=== PATIENT | female | born 1945 | race Caucasian/White ===

== ENCOUNTER 2016-05-10 11:53 | Inpatient (IN) ==
[2016-05-10] MEDS ORDERED: Ondansetron 4 MG/2 ML VIAL IVP STA ×2 (13:34→14:40)
[2016-05-10] MEDS ORDERED: *HR* HYDROmorphone (PF) 1 MG/ML SYRINGE IVP ONE (13:34)
[2016-05-10 13:58] LABS: Basophils % 0.4 %; Eosinophils # 0.1 K/mcL (0.0-0.6); Eosinophils % 0.6 %; Hematocrit 42.6 % (35.3-44.9); Hemoglobin 13.8 g/dL (11.5-15.4); Immature Granulocytes % 0.5 % (0-4); Immature Platelets 6.9 % (1.1-6.1); Lymphocytes # 1.4 K/mcL (0.6-4.6); Lymphocytes % 18.6 %; Mean Corpuscular HGB Conc 32.4 g/dL (31.6-35.5); Mean Corpuscular Hemoglobin 27.9 pg (28.0-33.3); Mean Corpuscular Volume 86.1 fL (83.0-100.0); Mean Platelet Volume 11.2 fL (9.4-12.4); Monocytes # 0.3 K/mcL (0.0-1.3); Monocytes % 4.2 %; Neutrophils # 5.8 K/mcL (1.6-8.9); Platelet Count 137 K/mcL (140-400); Red Blood Count 4.95 M/mcL (3.82-4.97); Red Cell Distribution Width 13.2 % (11.5-14.5); Segmented Neutrophils % 75.7 %
--- NOTE | 2016-05-10 13:59 | Emergency Department Note ---
Disposition Clinical Impression: Small bowel obstruction Disposition: Admitted As Inpatient Condition: Critical Time of Disposition: 18:40 Abdominal Pain HPI - General Chief Complaint: ED Abdominal Pain Stated Complaint: Abdominal pain Time Seen by Provider: 05/10/16 13:27 Source: patient Nursing Notes Reviewed: Yes Vital Signs Reviewed: Yes - History of Present Illness HPI Narrative: Mrs. Hankins, a 71yo female, presents from home by POV which he complained abdominal pain. History obtained from patient's daughter and as patient is moaning in bed. She has history of multiple dental procedures with known adhesions and history of multiple bowel obstructions. Daughter states patient was asymptomatic this morning and a breakfast without issue. Shortly thereafter, she had intense sharp diffuse abdominal pain with associated nausea and dry heaves. Patient is not had a bowel movement or passed flatus. Pain Scale: 10 - Related Data Home Medications Medication Instructions Recorded Confirmed Amlodipine [Norvasc] 5 mg PO BID 05/10/16 05/10/16 Aspirin Enteric Coated [Aspirin EC] 81 mg PO DAILY 05/10/16 05/10/16 Cholecalciferol (D-3) [Vitamin D] 2,000 unit PO DAILY 05/10/16 05/10/16 Levothyroxine [Synthroid] 100 mcg PO DAILY 05/10/16 05/10/16 Metoprolol [Lopressor] 50 mg PO BID 05/10/16 05/10/16 Tramadol HCl/Acetaminophen 1 each PO HS PRN 05/10/16 05/10/16 [Ultracet Tablet] Allergies Allergy/AdvReac Type Severity Reaction Status Date / Time No Known Allergies Allergy Verified 11/25/15 00:01 All systems ED: reviewed and negative except as stated. Constitutional: Denies: fever, chills Cardiovascular: Denies: chest pain, palpitations Respiratory: Denies: cough, dyspnea, wheezes Gastrointestinal: Reports: abdominal pain, nausea, vomiting. Denies: diarrhea, constipation, hematemesis, melena, hematochezia Genitourinary: Denies: urgency, dysuria Musculoskeletal: Denies: back pain Integumentary: Denies: rash Abdominal Pain PMH - Past Medical History Medical history: Reports: hypertension Female Surgical History: Reports: appendectomy, cholecystectomy, other Psychiatric history: Reports: no psych history - Social History Smoking status: Never smoker Alcohol use: Reports: none Drug use: Reports: none Physical Exam General: Patient is alert, oriented, and in acute painful distress she is moaning in pain with her eyes clip shot holding her abdomen. HEENT: No facial asymmetry. Head is normocephalic and atraumatic. Trachea midline. Cardiovascular: Heart regular rate and rhythm without clicks, rubs, gallops, or murmurs. No JVD. PMI nondisplaced. Respiratory: Symmetric chest rise with good respiratory effort. Bilateral breath sounds are clear without wheezing, crackles, or rhonchi. Abdomen: Bowel sounds present normoactive x-4 quadrants. Abdomen is soft, nondistended, no guarding. Diffusely tender in all quadrants. Unable to assess organomegaly due to patient's pain. Psych: Patient's affect is appropriate for situation. - General Limitations: no limitations General appearance: alert, in no apparent distress Course Course Narrative: We will perform abdominal workup including CT abdomen and pelvis with IV contrast. I have chosen to not wait for by mouth contrast to hasten the potential diagnosis of bowel obstruction. Patient's lab work is unremarkable. CT scan and formally read by myself or my attending as a small bowel obstruction. Radiology impression agrees. Abdomen/Pelvis CT 05/10/16 13:35 IMPRESSION: Proximal small bowel obstruction with transition occurring at the level of a jejunal anastomosis related to gastric bypass D/ / Steve Arias MD / Steve Arias MD Interpreting Provider: Steve Arias MD I spoke the patient and her family at bedside. When asked if they would prefer staying here versus going to [facility] where she had her previous surgeries, they prefer to stay here. When asked if they prefer her previous surgeon, Dr. Fierro, or the on-call surgeon they state they prefer Dr. Fierro. At this time, we will provide IV fluids and place NG tube. Patient expresses a need to urinate however is highly uncomfortable with the slightest movement; with her permission, will place Rosas catheter. NG tube placed by nursing. KUB as interpreted by myself and my attending confirm proper placement. Radiology read pending. Will clear nursing NG tube to wall vacuum. 17:[address] fierro after he was done with the surgery. He agrees to see the patient; accepted to his service. 19:00 Patient still in the ER however she is accepted with bed assignment. Patient signed out to night team for continued monitoring and management within the ER. Vital Signs Temperature 97.2 F L 05/10/16 12:15 Pulse Rate 61 05/10/16 12:15 Respiratory Rate 16 05/10/16 12:15 Blood Pressure 96/41 05/10/16 12:15 O2 Sat by Pulse Oximetry 100 05/10/16 12:15 Temperature 0 F L 05/10/16 18:56 Pulse Rate 53 05/10/16 14:38 Respiratory Rate 18 05/10/16 18:56 Blood Pressure 163/79 05/10/16 18:56 O2 Sat by Pulse Oximetry 94 L 05/10/16 14:51 Oxygen Delivery Oxygen Delivery Nasal Cannula Abdominal Pain - Lab Data Result diagrams: 05/10/16 13:35 05/10/16 13:35 Lab Results 05/10/16 05/10/16 Range/Units 13:35 13:35 WBC 7.7 (4.3-11.1) K/mcL RBC 4.95 (3.82-4.97) M/mcL Hgb 13.8 (11.5-15.4) g/dL Hct 42.6 (35.3-44.9) % MCV 86.1 (83.0-100.0) fL MCH 27.9 L (28.0-33.3) pg MCHC 32.4 (31.6-35.5) g/dL RDW 13.2 (11.5-14.5) % Plt Count 137 L (140-400) K/mcL MPV 11.2 (9.4-12.4) fL Immature Gran % 0.5 (0-4) % Seg Neutrophils % 75.7 % Lymphocytes % 18.6 % Monocytes % 4.2 % Eosinophils % 0.6 % Basophils % 0.4 % Neutrophils # 5.8 (1.6-8.9) K/mcL Lymphocytes # 1.4 (0.6-4.6) K/mcL Monocytes # 0.3 (0.0-1.3) K/mcL Eosinophils # 0.1 (0.0-0.6) K/mcL Basophils # 0.0 (0.0-0.2) K/mcL Immature Plt Fraction 6.9 H (1.1-6.1) % Sodium 137 (136-145) mEq/L Potassium 3.7 (3.5-4.5) mEq/L Chloride 101 (98-109) mEq/L Carbon Dioxide 21 (19-29) mEq/L BUN 14 (7-20) mg/dL Creatinine 0.89 (0.57-1.11) mg/dL Est GFR ( Amer) > 60 (> 60) Est GFR (Non-Af Amer) > 60 (> 60) BUN/Creatinine Ratio 16 (6-26) Glucose 142 H (70-99) mg/dL Calculated Osmolality 287 (280-300) Calcium 10.0 (8.6-10.8) mg/dL Total Bilirubin 0.6 (0.2-1.2) mg/dL Direct Bilirubin 0.2 (0.0-0.5) mg/dL Indirect Bilirubin 0.4 (0.0-1.2) mg/dL AST 36 H (5-34) Units/L ALT 27 (0-55) Units/L Alkaline Phosphatase 111 (38-126) Units/L Serum Total Protein 7.7 (6.0-8.3) g/dL Albumin 4.3 (3.5-5.0) g/dL Globulin 3.4 (2.4-3.5) g/dL Albumin/Globulin Ratio 1.3 (1.1-2.2) Amylase 80 (25-125) Units/L Lipase 68 (8-78) Units/L S.B.A.R. - S.B.A.RSevero Situation: Demographics Background: Presenting Complaint, Relevant PMH, Meds, & Allergies Assessment: Vital Signs, Course and respsone to treatment, Exam Concerns, Patient/Family Expectation, Pertinant Lab Results Recommendation: Barrier(s) to disposition S.B.A.R. Report Given to: Dr. Barros SSeveroB.ASandrine Repor Time: 19:07 Attestation Statement - Attestation Attestation: I examined this patient and my medical decision-making was reviewed with the INVENTORY CHECKER/PA/Advanced Practice Nurse/Resident Physician. I agree with the documented findings, disposition and treatment plan as described except to the extent set forth below. Patient to the emergency department for the chief complaint of abdominal pain. Onset this morning. Feels like prior bowel obstructions. On examination the patient is crying. Diffuse pain with palpation over the abdomen. She does have bowel sounds. Plan. Labs pain control and CT scan. Patient was small bowel obstruction on CT. She is feeling better after NG placement. Still awaiting callback from surgery.
[2016-05-10 14:19] LABS: Alanine Aminotransferase 27 Units/L (0-55); Albumin 4.3 g/dL (3.5-5.0); Albumin/Globulin Ratio 1.3 (1.1-2.2); Alkaline Phosphatase 111 Units/L (38-126); Amylase 80 Units/L (25-125); Aspartate Amino Transferase 36 Units/L (5-34); BUN/Creatinine Ratio 16 (6-26); Bilirubin,Direct 0.2 mg/dL (0.0-0.5); Bilirubin,Indirect 0.4 mg/dL (0.0-1.2); Bilirubin,Total 0.6 mg/dL (0.2-1.2); Blood Urea Nitrogen 14 mg/dL (7-20); Carbon Dioxide 21 mEq/L (19-29); Chloride 101 mEq/L (98-109); Globulin 3.4 g/dL (2.4-3.5); Glucose 142 mg/dL (70-99); Lipase 68 Units/L (8-78); Osmolality,Calculated 287 (280-300); Potassium 3.7 mEq/L (3.5-4.5); Sodium 137 mEq/L (136-145); Total Protein 7.7 g/dL (6.0-8.3); eGFR For African Americans > 60 (> 60); eGFR For Non-African Americans > 60 (> 60)
[2016-05-10] MEDS ORDERED: *HR* Morphine 2 MG/ML SYRINGE IVP ONE (14:19)
[2016-05-10] MEDS ORDERED: *HR* Promethazine 25 MG/ML VIAL IVP ONE ×2 (14:57→17:15)
[2016-05-10] MEDS ORDERED: 0.9 % Sodium Chloride 1,000 ML IVC ONE ×2 (15:50→17:47)
--- NOTE | 2016-05-10 20:00 | General Surg History&Physical ---
Date of Encounter: 05/10/16 Time of Encounter: 18:20 History of Present Illness Chief complaint: Abdominal pain; small bowel obstruction HPI: Ms. Hankins is a 71 year old female referred to [facility], per patient and family request, for further evaluation of new onset abdominal pain if multiple episodes of "dry heaves". The patient has a significant surgical history of gastric bypass in 2000. The patient apparently presented approximately a year and a half ago, with similar symptoms but they resolved without surgical intervention. Patient's blood work is unremarkable, white count 7.7, hemoglobin 13.8, hematocrit 42.6. Lites, BUN, creatinine within normal limits. CT of the abdomen and pelvis was personally reviewed with [facility]. The findings include: Scarring left lower lobe; small left renal cyst and evidence of previous cholecystectomy as well as gastric bypass. There is distention of the remnant stomach, duodenum and proximal jejunum. Transition to normal caliber small bowel is noted in the left lower quadrant at the site of a jejuno-jejunum anastomosis. Fecalization of the small bowel contents within the dilated loops is described and may represent accumulation of indigestible vegetable matter causing the obstruction. The patient's symptoms and radiologic findings prompted a surgical referral. Past medical history is notable for hypertension, hypothyroidism Surgical history: Liam-en-Y gastric bypass, 2000; cholecystectomy 2001; left total knee approximately one month ago (Dr Saavedra) Allergies: No known drug allergies Medications: Amlodipine 5 mg by mouth twice a day Aspirin 81 mg by mouth daily Metoprolol 2050 mg by mouth twice a day (family indicates she is taking 1 daily) Levothyroxine 100 g by mouth daily Per hospital records - also cholecalciferol 2000 units by mouth daily Tramadol/acetaminophen 1 by mouth daily at bedtime when necessary Social history: Patient is , lives at home with her ; G2, P2; patient has never smoked; admits to occasional out colic beverage. She denies any illicit drug use. Family history: Noncontributory Physical examination: Elderly female lying quietly in her hospital bed; she has been medicated for pain and antiemetics with resultant sedation. Rosas catheter and nasogastric tube in place per ED personnel. The patient is afebrile, 98.8; pulse 68, respirations 16, blood pressure 143/ 79. SPO2 on 2 L/m nasal cannula 93% Skin: Warm, waist, no obvious jaundice Lungs: Clear to auscultation, no obvious abdominal pain on inspiration. Cardiac: Regular rate, no appreciable murmurs Abdomen: Well-healed upper midline surgical scar without fascial defects; abdomen soft, nontender. High-pitched, tinkling bowel sounds noted. No obvious intra-abdominal masses. No rebound. Extremities: Left knee swelling with healthy, healing midline scar surgical scar consistent with recent TKR Right lower extremity without obvious clubbing, cyanosis, or edema Impression:71 yo with new onset cramping abdominal pain, dry heaves and radiologic evidence SBO. Most likely at a prior jejuno-jejunal anastomosis related to a Liam-Y gastric bypass completed 2000. Plan: Nothing by mouth, continue NG decompression; IV hydration. If symptoms persist - patient may require exploratory celiotomy with revision / resection jejuno-jejunal anastomosis. This was discussed in detail with the patient, her and daughter who were present at bedside. Past Med Surg Social Fam HX - Past Medical History Medical history: hypertension Psychiatric history: no psych history - Social History Smoking Status: Never smoker Smokeless Tobacco Status: No Alcohol use: none Drug use: none Medications and Allergies Amlodipine [Norvasc] 5 mg PO BID 05/10/16 [History] Aspirin Enteric Coated [Aspirin EC] 81 mg PO DAILY 05/10/16 [History] Cholecalciferol (D-3) [Vitamin D] 2,000 unit PO DAILY 05/10/16 [History] Levothyroxine [Synthroid] 100 mcg PO DAILY 05/10/16 [History] Metoprolol [Lopressor] 50 mg PO BID 05/10/16 [History] Tramadol HCl/Acetaminophen [Ultracet Tablet] 1 each PO HS PRN 05/10/16 [History] Allergies No Known Allergies Allergy (Verified 11/25/15 00:01) Review of Systems All systems PM: A 10-system review of systems was performed and is negative for pertinent findings except as documented above in the HPI. General Surgery Exam Initial Vital Signs Temp Pulse Resp BP Pulse Ox 97.2 F L 61 16 96/41 100 05/10/16 12:15 05/10/16 12:15 05/10/16 12:15 05/10/16 12:15 05/10/16 12:15 Results - Labs 05/10/16 13:35 05/10/16 13:35 Abnormal lab results MCH 27.9 pg (28.0-33.3) L 05/10/16 13:35 Plt Count 137 K/mcL (140-400) L 05/10/16 13:35 Immature Plt Fraction 6.9 % (1.1-6.1) H 05/10/16 13:35 Glucose 142 mg/dL (70-99) H 05/10/16 13:35 AST 36 Units/L (5-34) H 05/10/16 13:35 All other labs normal.
[2016-05-10] MEDS ORDERED: *HR* HYDROmorphone (PF) 1 MG/ML SYRINGE IVP PRN (20:06)
[2016-05-10] MEDS ORDERED: *HR* Promethazine 25 MG/ML VIAL IVP PRN (20:06)
[2016-05-10] MEDS: Ringers Solution, Lactated 1,000 ML IVC SCH (22:23)
[2016-05-10] MEDS: *HR* Metoprolol 5 MG/5 ML VIAL IVP SCH (23:57)
[2016-05-11] MEDS: *HR* Metoprolol 5 MG/5 ML VIAL IVP SCH ×2 (06:09→13:01)
[2016-05-11] MEDS: Ringers Solution, Lactated 1,000 ML IVC SCH (06:09)
[2016-05-11] MEDS: *HR* Heparin 5,000 UNIT/ML VIAL SQ SCH ×2 (07:14→20:13)
[2016-05-11 07:26] LABS: Bilirubin,Urine Negative (Negative); Blood,Urine Negative (Negative); Clarity,Urine Clear (Clear); Color,Urine Yellow (Yellow); Glucose,Urine (UA) Normal (Normal); Ketones,Urine Negative (Negative); Leukocyte Esterase,Urine Negative (Negative); Nitrite,Urine Negative (Negative); Protein,Urine Negative (Neg-Trace); Specific Gravity,Urine 1.013 (1.010-1.025); Urobilinogen,Urine Normal (Normal)
[2016-05-11] MEDS ORDERED: Acetaminophen 325 MG TABLET PO PRN (13:10)
[2016-05-11] MEDS ORDERED: D5% in 0.45% NACL 1,000 ML IVC SCH (13:15)
--- NOTE | 2016-05-11 13:18 | General Surgery Progress Note ---
Date of Encounter: 05/11/16 Time of Encounter: 12:50 Subjective Patient reports: feels better, flatus Narrative: Hospital day 1: patient feeling much improved. No further complaints cramping abdominal pain. No N/V or dry heaves. Passing flatus The patient is afebrile, 98.6; pulse 62, respirations 14, blood pressure 154/ 79 NG output - scant Lungs: Clear Abdomen: Soft, nontender with active bowel sounds Acute abdominal series - personally reviewed with [facility]. Findings include: bibasilar atelectasis, scattered air-filled loops of small bowel which appear less pronounced compaired to the CT last evening; moderate stool within the colon; mild degenerative changes of the hips and spine. Impression: Significant improvement with solution of cramping abdominal pain. Patient no longer in distress. Passing flatus. Small bowel obstruction appears to be resolved. Plan: Remove NG and Rosas Clear liquid diet Cancel surgical plans for the time being. Patient and family aware and agree with this treatment plan. Objective Vital Signs - Last 8 Hours Temp Pulse Resp BP Pulse Ox 05/11/16 11:00 98.6 F 62 14 154/79 95 05/11/16 08:01 98.6 F 62 16 126/75 96 Intake and Output 05/10/16 05/11/16 05/11/16 23:59 07:59 15:59 Intake Total 1000 / 1000 0 / 0 Output Total 400 / 400 650 / 650 Balance 600 / 600 -650 / -650 Intake: IV Fluids 1000 / 1000 Lactated Ringers 1,000 ML 1000 / 1000 @ 125 mls/hr IVC .Q8H [facility] Rx#:[id number] Oral 0 / 0 0 / 0 Output: Urine 300 / 300 Catheter 400 / 400 350 / 350 Gastric Drainage 0 / 0 Other: Weight 90.718 kg Blood Glucose* 89 106 Patient Weight 05/11/16 23:59 Weight 90.718 kg - Labs 05/10/16 13:35 05/10/16 13:35 Consult Discharge Plan - Plan Referrals: Bhavik Fierro MD [Non-Partnered Physician] -
[2016-05-11] MEDS: amLODIPine 5 MG TABLET PO SCH (18:48)
[2016-05-12 05:15] LABS: Basophils % 0.5 %; Eosinophils # 0.2 K/mcL (0.0-0.6); Hemoglobin 11.8 g/dL (11.5-15.4); Immature Granulocytes % 0.3 % (0-4); Lymphocytes # 1.5 K/mcL (0.6-4.6); Lymphocytes % 40.5 %; Mean Corpuscular HGB Conc 31.1 g/dL (31.6-35.5); Mean Corpuscular Hemoglobin 27.5 pg (28.0-33.3); Mean Corpuscular Volume 88.6 fL (83.0-100.0); Mean Platelet Volume 10.9 fL (9.4-12.4); Monocytes # 0.4 K/mcL (0.0-1.3); Monocytes % 9.4 %; Neutrophils # 1.7 K/mcL (1.6-8.9); Platelet Count 112 K/mcL (140-400); Red Blood Count 4.29 M/mcL (3.82-4.97); Red Cell Distribution Width 13.3 % (11.5-14.5); Segmented Neutrophils % 45.3 %
[2016-05-12 05:33] LABS: BUN/Creatinine Ratio 11 (6-26); Blood Urea Nitrogen 7 mg/dL (7-20); Calcium 8.9 mg/dL (8.6-10.8); Carbon Dioxide 27 mEq/L (19-29); Chloride 107 mEq/L (98-109); Glucose 91 mg/dL (70-99); Osmolality,Calculated 288 (280-300); Potassium 3.3 mEq/L (3.5-4.5); Sodium 140 mEq/L (136-145); eGFR For African Americans > 60 (> 60); eGFR For Non-African Americans > 60 (> 60)
[2016-05-12] MEDS: *HR* Heparin 5,000 UNIT/ML VIAL SQ SCH (06:07)
[2016-05-12 07:52] VITALS: BP 152/73
[2016-05-12] MEDS: amLODIPine 5 MG TABLET PO SCH (09:59)
--- NOTE | 2016-05-12 12:20 | General Surgery Progress Note ---
Date of Encounter: 05/12/16 Time of Encounter: 12:00 Subjective Patient reports: no new complaints, feels better Narrative: General Surgery Progress Note / Discharge Summary Hospital day #2 - patient feeling well, voicing no complaints. Abdominal pain for which the patient was admitted, resolved The patient is afebrile, 98.2; pulse 60, respirations 16, blood pressure 152/ 73. SPO2 on room air 96% Lungs: Clear, no abdominal pain with deep inspiration Cardiac: Regular rate, no obvious murmurs Abdomen: Soft, nontender. Active bowel sounds. Patient continues to move her bowels. Resolution of previous signs and symptoms of a small bowel obstruction Laboratories: White count 3.7; hemoglobin 11.8 with hematocrit 38.8 - H&H diminished due to IV fluids administered in ED and during hospitalization Potassium 3.3; other electrolytes BUN creatinine within normal limits Impression: likely transient mechanical bowel obstruction due to accumulated fibrous, undigestible material at the jejuno-jejunal anastomosis created during the Liam-Y gastric bypass. This obstruction spontaneously resolved with fluids, bowel rest and NG decompression Hypertension - stable/controlled Hypothyroidism Hypokalemia - consume foods rich in potassium - bananas, raisins Plan: discharge home follow up with me, PRN regular diet increase daily fluid intake along with stool softeners of choice BID resume home meds Objective Vital Signs - Last 8 Hours Temp Pulse Resp BP Pulse Ox 05/12/16 07:46 98.2 F 60 16 152/73 96 Intake and Output 05/11/16 05/12/16 05/12/16 23:59 07:59 15:59 Intake Total 1400 / 1400 240 / 240 460 / 460 Output Total 0 / 0 900 / 900 Balance 1400 / 1400 -660 / -660 460 / 460 Intake: Oral 1400 / 1400 240 / 240 460 / 460 Output: Urine 0 / 0 900 / 900 Other: Meal Dinner Percent of Meal Consumed 85% Stool Size Moderate Stool Consistency liquid Stool Color Brown # Voids 1 # Bowel Movements 1 Weight 95.396 kg Patient Weight 05/12/16 23:59 Weight 95.396 kg - Labs 05/12/16 04:58 05/12/16 04:58 Diabetes panel 05/12/16 Range/Units 04:58 Sodium 140 (136-145) mEq/L Potassium 3.3 L (3.5-4.5) mEq/L Chloride 107 (98-109) mEq/L Carbon Dioxide 27 (19-29) mEq/L BUN 7 (7-20) mg/dL Creatinine 0.66 (0.57-1.11) mg/dL Glucose 91 (70-99) mg/dL Calcium 8.9 (8.6-10.8) mg/dL Calcium panel 05/12/16 Range/Units 04:58 Calcium 8.9 (8.6-10.8) mg/dL Pituitary panel 05/12/16 Range/Units 04:58 Sodium 140 (136-145) mEq/L Potassium 3.3 L (3.5-4.5) mEq/L Chloride 107 (98-109) mEq/L Carbon Dioxide 27 (19-29) mEq/L BUN 7 (7-20) mg/dL Creatinine 0.66 (0.57-1.11) mg/dL Glucose 91 (70-99) mg/dL Calcium 8.9 (8.6-10.8) mg/dL Adrenal panel 05/12/16 Range/Units 04:58 Sodium 140 (136-145) mEq/L Potassium 3.3 L (3.5-4.5) mEq/L Chloride 107 (98-109) mEq/L Carbon Dioxide 27 (19-29) mEq/L BUN 7 (7-20) mg/dL Creatinine 0.66 (0.57-1.11) mg/dL Glucose 91 (70-99) mg/dL Calcium 8.9 (8.6-10.8) mg/dL Consult Discharge Plan - Plan Referrals: Mingo Dunham DO [Primary Care Provider] - Bhavik Fierro MD [Non-Partnered Physician] -
--- NOTE | 2016-05-12 12:22 | Discharge Summary ---
Outpatient Proc Discharge Plan - Plan Additional Instructions: Regular diet Stool softeners of choice twice daily Laxative of choice as needed for constipation (suggest MiraLAX) Increase dietary intake of fluids; nutrition/dietary to provide suggested products Activity as tolerated, may resume rehabilitation for continued TKR recovery Follow-up with me as needed Resume home meds Home Medications: Amlodipine [Norvasc] 5 mg PO BID 05/10/16 [History] Aspirin Enteric Coated [Aspirin EC] 81 mg PO DAILY 05/10/16 [History] Cholecalciferol (D-3) [Vitamin D] 2,000 unit PO DAILY 05/10/16 [History] Levothyroxine [Synthroid] 100 mcg PO DAILY 05/10/16 [History] Metoprolol [Lopressor] 50 mg PO BID 05/10/16 [History] Tramadol HCl/Acetaminophen [Ultracet Tablet] 1 each PO HS PRN 05/10/16 [History] Acetaminophen [Tylenol] 650 mg PO Q6HR PRN #0 tablet 05/12/16 [Rx]
== END 2016-05-12 13:30 | disposition home or self-care (01) | DRG 390 ==
LOC: EMEROO 11:53 → 3ANU 11:53
PROVIDERS: ADMIT Surgery; ATTEND Surgery

== ENCOUNTER 2016-09-13 19:17 | Inpatient (IN) ==
[2016-09-13] MEDS ORDERED: 0.9 % Sodium Chloride 1,000 ML IVC ONE (20:17)
[2016-09-13] MEDS ORDERED: Ondansetron 4 MG/2 ML VIAL IVP ONE (20:17)
[2016-09-13] MEDS ORDERED: *HR* Morphine 2 MG/ML SYRINGE IVP ONE (20:17)
--- NOTE | 2016-09-13 20:37 | Emergency Department Note ---
Disposition Clinical Impression: Small bowel obstruction Disposition: Admitted As Inpatient Condition: Fair Time of Disposition: 22:21 Abdominal Pain HPI - General Chief Complaint: ED Abdominal Pain Stated Complaint: abd pain Time Seen by Provider: 09/13/16 19:22 Source: patient, family Nursing Notes Reviewed: Yes Vital Signs Reviewed: Yes - History of Present Illness HPI Narrative: Mrs. Hankins, 71-year-old female, presents from home via POV with and daughter bedside for evaluation of acute onset abdominal pain. Onset 1.5 hours prior to arrival (appx 17:45). Described as upper abdomen, intensely painful. Patient has difficulty characterizing her pain. It does radiate to her back. She states this feels identical to previous small bowel obstructions. Most recent SBO was in April and she is had a total of 5 previous confirmed small bowel structures before today's symptoms. She is associated nausea (without vomiting), anorexia. She did have a bowel movement earlier today (no melena, no hematochezia) but has not passed flatus since onset of symptoms. Patient did have resection after first SBO some years ago however subsequent SBO 's have spontaneously resolved. Followed by Dr. Fierro. She is currently not on any antiplatelets or anticoagulants. PSH: Appendectomy, cholecystectomy, gastric bypass, remote small bowel resection after first SBO. Gastric bypass performed [address] Segovia at [facility]. Pain Scale: 10 - Related Data Home Medications Medication Instructions Recorded Confirmed Levothyroxine [Synthroid] 100 mcg PO DAILY 05/10/16 09/13/16 Metoprolol [Lopressor] 50 mg PO BID 05/10/16 09/13/16 amLODIPine [Norvasc] 5 mg PO BID 05/10/16 05/10/16 predniSONE [PredniSONE] 10 mg PO TAPER 09/13/16 09/13/16 Previous Rx's Medication Instructions Recorded Acetaminophen [Tylenol] 650 mg PO Q6HR PRN #0 tablet 05/12/16 Allergies Allergy/AdvReac Type Severity Reaction Status Date / Time No Known Allergies Allergy Verified 11/25/15 00:01 All systems ED: reviewed and negative except as stated. Abdominal Pain PMH - Past Medical History Medical history: Reports: hypertension, thyroid disease, other Female Surgical History: Reports: appendectomy, cholecystectomy, other Psychiatric history: Reports: no psych history - Social History Smoking status: Never smoker Alcohol use: Reports: none Drug use: Reports: none Physical Exam Vital Signs Reviewed General: Patient is alert, oriented, and in acute distress-she is in obvious pain and holding the emesis bag while grimacing. HEENT: No facial asymmetry. Head is normocephalic and atraumatic. PERRLA. Oral mucosa tacky. Trachea midline. Cardiovascular: Heart regular rate and rhythm without clicks, rubs, gallops, or murmurs. No JVD. PMI nondisplaced. Trace pedal edema. Respiratory: Symmetric chest rise with good respiratory effort. Bilateral breath sounds are clear without wheezing, crackles, or rhonchi. Abdomen: Bowel sounds present normoactive x-4 quadrants. Abdomen is soft, nondistended, and without guarding. Mild diffuse tenderness most exquisite in the upper abdomen. Psych: Patient's affect is appropriate for situation. - General Limitations: no limitations General appearance: alert, in no apparent distress Course Course Narrative: The concerns for small bowel stricture. Will provide enzymatic, pain control, fluid resuscitation, laboratory workup, CT abdomen and pelvis with IV contrast. If obstruction present, will place NG tube and page Dr. Fierro. Abdomen/Pelvis CT 09/13/16 20:20 IMPRESSION: 1. Status post gastric bypass. Redemonstration of obstruction at the level of the jejunal-jejunal anastomosis involving the gastric remnant and proximal small bowel. Fecalization of small bowel contents. The small bowel distal to the gastrojejunostomy is unremarkable. 2. Otherwise no acute findings within the abdomen or pelvis. D/ / 09/13/2016 21:32:37 Guille Arnold MD / [facility] Interpreting Provider: Guille Arnold MD Prior to CT, patient had a large belch after which she felt substantially better. It appears as she self-decompressed her stomach. No significant gastric distention on CT. We will hold off on NG tube at this time until patient becomes symptomatic with gastric station wanting discomfort when NG tube. Spoke with Dr. fierro who agrees with medical management at this time. Spoke with the admitting hospitalist reduced to except the patient for continued evaluation and management. Vital Signs Temperature 97.6 F 09/13/16 19:33 Pulse Rate 68 09/13/16 19:33 Respiratory Rate 18 09/13/16 19:33 Blood Pressure 117/78 09/13/16 19:33 O2 Sat by Pulse Oximetry 97 09/13/16 19:33 Temperature 98.3 F 09/14/16 00:01 Pulse Rate 72 09/14/16 00:01 Respiratory Rate 13 09/14/16 00:01 Blood Pressure 166/77 09/14/16 00:01 O2 Sat by Pulse Oximetry 95 09/14/16 00:01 Oxygen Delivery Oxygen Delivery Room Air Abdominal Pain - Lab Data Result diagrams: 09/13/16 20:30 09/13/16 20:30 Lab Results 09/13/16 09/13/16 09/13/16 Range/Units 20:30 20:30 20:38 WBC 10.5 (4.3-11.1) K/mcL RBC 5.16 H (3.82-4.97) M/mcL Hgb 13.8 (11.5-15.4) g/dL Hct 43.7 (35.3-44.9) % MCV 84.7 (83.0-100.0) fL MCH 26.7 L (28.0-33.3) pg MCHC 31.6 (31.6-35.5) g/dL RDW 14.6 H (11.5-14.5) % Plt Count 153 (140-400) K/mcL MPV 11.5 (9.4-12.4) fL Immature Gran % 0.4 (0-4) % Seg Neutrophils % 77.8 % Lymphocytes % 15.2 % Monocytes % 5.3 % Eosinophils % 1.0 % Basophils % 0.3 % Neutrophils # 8.2 (1.6-8.9) K/mcL Lymphocytes # 1.6 (0.6-4.6) K/mcL Monocytes # 0.6 (0.0-1.3) K/mcL Eosinophils # 0.1 (0.0-0.6) K/mcL Basophils # 0.0 (0.0-0.2) K/mcL PT 10.4 (9.4-12.1) Seconds INR 1.0 APTT 25.1 L (26.0-36.0) Seconds Sodium 136 (136-145) mEq/L Potassium 4.5 (3.5-4.5) mEq/L Chloride 100 (98-109) mEq/L Carbon Dioxide 26 (19-29) mEq/L BUN 26 H (7-20) mg/dL Creatinine 0.91 (0.57-1.11) mg/dL Est GFR ( Amer) > 60 (> 60) Est GFR (Non-Af Amer) > 60 (> 60) BUN/Creatinine Ratio 29 H (6-26) Glucose 137 H (70-99) mg/dL Calculated Osmolality 289 (280-300) Lactic Acid (0.5-2.2) mmol/L Calcium 10.1 (8.6-10.8) mg/dL Total Bilirubin 0.6 (0.2-1.2) mg/dL Direct Bilirubin 0.2 (0.0-0.5) mg/dL Indirect Bilirubin 0.4 (0.0-1.2) mg/dL AST 28 (5-34) Units/L ALT 24 (0-55) Units/L Alkaline Phosphatase 105 (38-126) Units/L Serum Total Protein 8.0 (6.0-8.3) g/dL Albumin 4.3 (3.5-5.0) g/dL Globulin 3.7 H (2.4-3.5) g/dL Albumin/Globulin Ratio 1.2 (1.1-2.2) Lipase 83 H (8-78) Units/L Urine Color (Yellow) Urine Clarity (Clear) Urine pH (5.0-8.0) pH Units Ur Specific [place] (1.010-1.025) Urine Protein (Neg-Trace) mg/dL Urine Glucose (UA) (Normal) mg/dL Urine Ketones (Negative) mg/dL Urine Blood (Negative) Urine Nitrite (Negative) Urine Bilirubin (Negative) Urine Urobilinogen (Normal) mg/dL Ur Leukocyte Esterase (Negative) Urine Microscopic RBC (0-3) per hpf Urine Microscopic WBC (0-3) per hpf Ur Squamous Epith Cells (None-Few) per lpf Urine Bacteria (None-Few) per hpf Hyaline Casts (None-Few) per lpf Ur Culture Indicated? (NO) 09/13/16 09/13/16 Range/Units 20:45 21:27 WBC (4.3-11.1) K/mcL RBC (3.82-4.97) M/mcL Hgb (11.5-15.4) g/dL Hct (35.3-44.9) % MCV (83.0-100.0) fL MCH (28.0-33.3) pg MCHC (31.6-35.5) g/dL RDW (11.5-14.5) % Plt Count (140-400) K/mcL MPV (9.4-12.4) fL Immature Gran % (0-4) % Seg Neutrophils % % Lymphocytes % % Monocytes % % Eosinophils % % Basophils % % Neutrophils # (1.6-8.9) K/mcL Lymphocytes # (0.6-4.6) K/mcL Monocytes # (0.0-1.3) K/mcL Eosinophils # (0.0-0.6) K/mcL Basophils # (0.0-0.2) K/mcL PT (9.4-12.1) Seconds INR APTT (26.0-36.0) Seconds Sodium (136-145) mEq/L Potassium (3.5-4.5) mEq/L Chloride (98-109) mEq/L Carbon Dioxide (19-29) mEq/L BUN (7-20) mg/dL Creatinine (0.57-1.11) mg/dL Est GFR ( Amer) (> 60) Est GFR (Non-Af Amer) (> 60) BUN/Creatinine Ratio (6-26) Glucose (70-99) mg/dL Calculated Osmolality (280-300) Lactic Acid 1.8 (0.5-2.2) mmol/L Calcium (8.6-10.8) mg/dL Total Bilirubin (0.2-1.2) mg/dL Direct Bilirubin (0.0-0.5) mg/dL Indirect Bilirubin (0.0-1.2) mg/dL AST (5-34) Units/L ALT (0-55) Units/L Alkaline Phosphatase (38-126) Units/L Serum Total Protein (6.0-8.3) g/dL Albumin (3.5-5.0) g/dL Globulin (2.4-3.5) g/dL Albumin/Globulin Ratio (1.1-2.2) Lipase (8-78) Units/L Urine Color Yellow (Yellow) Urine Clarity Cloudy A (Clear) Urine pH 6.5 (5.0-8.0) pH Units Ur Specific [place] 1.029 H (1.010-1.025) Urine Protein Negative (Neg-Trace) mg/dL Urine Glucose (UA) Normal (Normal) mg/dL Urine Ketones Negative (Negative) mg/dL Urine Blood Negative (Negative) Urine Nitrite Positive A (Negative) Urine Bilirubin Negative (Negative) Urine Urobilinogen Normal (Normal) mg/dL Ur Leukocyte Esterase Moderate H (Negative) Urine Microscopic RBC 0-3 (0-3) per hpf Urine Microscopic WBC 3-5 H (0-3) per hpf Ur Squamous Epith Cells Many H (None-Few) per lpf Urine Bacteria Many H (None-Few) per hpf Hyaline Casts None Seen (None-Few) per lpf Ur Culture Indicated? YES A (NO) Attestation Statement - Attestation Attestation: I, Sanjay Hood, examined this patient and my medical decision-making was reviewed with the SENIOR SYSTEMS ANALYST/PA/Advanced Practice Nurse/Resident Physician. I agree with the documented findings, disposition and treatment plan as described except to the extent set forth below. 71-year-old female presents with concerns of abdominal pain. Patient states that this feels similar to her previous small bowel obstruction. She was previously seen by Dr. fierro and came close to having surgery of the abdomen to release her obstruction however she spontaneously improved. Patient has a history of gastric bypass in the distant past. Symptoms started about 1.5 hours prior to arrival. She is belching and feels nauseated. Has not had a bowel movement today. Denies recent trauma or other injury. Denies chest pain or shortness of breath or palpitations. CT of the abdomen reveals small bowel obstruction. Dr. fierro was contacted by the resident who recommended admission to the hospital to the hospitalist for further care and evaluation and he will see her in the hospital.
[2016-09-13 20:40] LABS: Basophils % 0.3 %; Eosinophils # 0.1 K/mcL (0.0-0.6); Hematocrit 43.7 % (35.3-44.9); Hemoglobin 13.8 g/dL (11.5-15.4); Immature Granulocytes % 0.4 % (0-4); Lymphocytes # 1.6 K/mcL (0.6-4.6); Lymphocytes % 15.2 %; Mean Corpuscular HGB Conc 31.6 g/dL (31.6-35.5); Mean Corpuscular Hemoglobin 26.7 pg (28.0-33.3); Mean Corpuscular Volume 84.7 fL (83.0-100.0); Mean Platelet Volume 11.5 fL (9.4-12.4); Monocytes # 0.6 K/mcL (0.0-1.3); Monocytes % 5.3 %; Neutrophils # 8.2 K/mcL (1.6-8.9); Platelet Count 153 K/mcL (140-400); Red Blood Count 5.16 M/mcL (3.82-4.97); Red Cell Distribution Width 14.6 % (11.5-14.5); Segmented Neutrophils % 77.8 %
[2016-09-13 20:56] LABS: Alanine Aminotransferase 24 Units/L (0-55); Albumin 4.3 g/dL (3.5-5.0); Albumin/Globulin Ratio 1.2 (1.1-2.2); Alkaline Phosphatase 105 Units/L (38-126); Aspartate Amino Transferase 28 Units/L (5-34); BUN/Creatinine Ratio 29 (6-26); Bilirubin,Direct 0.2 mg/dL (0.0-0.5); Bilirubin,Indirect 0.4 mg/dL (0.0-1.2); Bilirubin,Total 0.6 mg/dL (0.2-1.2); Blood Urea Nitrogen 26 mg/dL (7-20); Calcium 10.1 mg/dL (8.6-10.8); Carbon Dioxide 26 mEq/L (19-29); Chloride 100 mEq/L (98-109); Globulin 3.7 g/dL (2.4-3.5); Glucose 137 mg/dL (70-99); Lipase 83 Units/L (8-78); Osmolality,Calculated 289 (280-300); Potassium 4.5 mEq/L (3.5-4.5); Sodium 136 mEq/L (136-145); eGFR For African Americans > 60 (> 60); eGFR For Non-African Americans > 60 (> 60)
[2016-09-13 21:44] LABS: Bilirubin,Urine Negative (Negative); Blood,Urine Negative (Negative); Clarity,Urine Cloudy (Clear); Color,Urine Yellow (Yellow); Glucose,Urine (UA) Normal (Normal); Ketones,Urine Negative (Negative); Leukocyte Esterase,Urine Moderate (Negative); Nitrite,Urine Positive (Negative); PH,Urine 6.5 pH Units (5.0-8.0); Protein,Urine Negative (Neg-Trace); Specific Gravity,Urine 1.029 (1.010-1.025); Urobilinogen,Urine Normal (Normal)
[2016-09-13 21:48] LABS: Bacteria,Urine Many per hpf (None-Few); Hyaline Casts,Urine None Seen per lpf (None-Few); RBC,Urine 0-3 per hpf (0-3); Squamous Epithelial Cell,Urine Many per lpf (None-Few)
[2016-09-13 21:53] LABS: Prothrombin Time 10.4 Seconds (9.4-12.1)
[2016-09-13 21:55] LABS: Activated Partial Thrombo Time 25.1 Seconds (26.0-36.0)
--- NOTE | 2016-09-14 03:48 | Internal Med History&Physical ---
Date of Encounter: 09/14/16 Time of Encounter: 03:48 Assessment and Plan (1) Small bowel obstruction Current visit: Yes Status: Acute CT scan of the abdomen showed obstruction at the level of the jejunal-jejunal anastomosis involving the gastric remnant and proximal small bowel. Will keep the pt NPO. Surgical consult with Dr Fierro. Further management per Dr Fierro. (2) UTI (urinary tract infection) Current visit: Yes Status: Acute Emperically started on ceftriaxone. Urine cultures pending Qualifiers: Urinary tract infection type: site unspecified Hematuria presence: without hematuria Qualified Code(s): N39.0 - Urinary tract infection, site not specified (3) Hypertension Current visit: Yes Status: Chronic Continue home antihypertensive medications Qualifiers: Hypertension type: essential hypertension Qualified Code(s): I10 - Essential (primary) hypertension (4) Hypothyroidism Current visit: Yes Status: Acute Continue synthroid Qualifiers: Hypothyroidism type: unspecified Qualified Code(s): E03.9 - Hypothyroidism , unspecified Internal Medicine - H&P: HPI Chief complaint: Abdominal pain Admitted From: Emergency Dept Plans for Post Hospital Care: Home History of present illness: Ms. Hankins is a 71 year old female With past h/o HTN, prior hospitalizations for small bowel obstruction, s/p Appendectomy, cholecystectomy, gastric bypass, remote small bowel resection after first SBO. She reports that she ate zucchini yesterday afternoon. She presented to the ER with acute onset severe upper abdominal pain. Associated with nausea, dry heaving. She had an episode of vomiting, which improved the pain. She did have a bowel movement earlier yesterday (no melena, no hematochezia). She reports flatus this morning, but no BM. She denies chest pain, shortness of breath, fever, chills. She denies dysuria or hematuria. She was evaluated in the emergency department and had CT scan of the abdomen and pelvis, which is reported Status post gastric bypass. Redemonstration of obstruction at the level of the jejunal-jejunal anastomosis involving the gastric remnant and proximal small bowel. Fecalization of small bowel contents. The small bowel distal to the gastrojejunostomy is unremarkable. She is kept NPO and admitted to the hospitalist service for further management. Past Med Surg Social Fam HX - Past Medical History Medical history: hypertension, thyroid disease, other Psychiatric history: no psych history - Past Surgical History Surgical History: appendectomy, cholecystectomy, knee replacement - Social History Smoking Status: Never smoker Smokeless Tobacco Status: No Alcohol use: none Drug use: none - Family History Mother Living Status: Hx Family Cardiac Disorders: Yes Hx Family Respiratory Disorders: No Hx Family Cancer: No Hx Family GI Disorders: No Hx Family Endocrine Disorder: No Hx Family Neuromuscular Disorders: No Hx Family Neurologic Disorders: No Hx Family HEENT Disorders: No Hx Family Autoimmune Disorders: No Hx Family Medical Disorders: Yes (DVT in legs) Internal Medicine - H&P: Meds Levothyroxine [Synthroid] 100 mcg PO DAILY 05/10/16 [History] Metoprolol [Lopressor] 50 mg PO BID 05/10/16 [History] amLODIPine [Norvasc] 5 mg PO BID 05/10/16 [History] Acetaminophen [Tylenol] 650 mg PO Q6HR PRN #0 tablet 05/12/16 [Rx] predniSONE [PredniSONE] 10 mg PO TAPER 09/13/16 [History] Allergies No Known Allergies Allergy (Verified 11/25/15 00:01) All Systems PM: A 10-system review of systems was performed and is negative for pertinent findings except as documented above in the HPI. - Constitutional Vitals: Temp Pulse Resp BP Pulse Ox 98.3 F 72 13 166/77 95 09/14/16 00:01 09/14/16 00:01 09/14/16 00:01 09/14/16 00:01 09/14/16 00:01 Exam: General: Not in acute distress at the time of my evaluation HEENT: Oral mucosa is moist. No conjunctival palor or scleral icterus Neck: No obvious neck swellings Lungs: Clear to auscultation Cardiac: Regular rate and rhythm. No significant murmurs Abdomen: Soft, non-tender. Bowel sounds present Genitourinary: No thacker catheter Neurological: Alert and oriented. No gross localizing deficits Psych: Not aggressive or agitated Extremities:B/L leg edema Skin: No generalized rash Internal Med - H&P Results - Labs CBC & Chem 7: 09/13/16 20:30 09/13/16 20:30 - Impressions ITS Impressions Abdomen/Pelvis CT 09/13/16 20:20 IMPRESSION: 1. Status post gastric bypass. Redemonstration of obstruction at the level of the jejunal-jejunal anastomosis involving the gastric remnant and proximal small bowel. Fecalization of small bowel contents proximal to the obstruction. The small bowel distal to the gastrojejunostomy is unremarkable. 2. Otherwise no acute findings within the abdomen or pelvis. D/ / 09/13/2016 21:32:37 Guille Arnold MD / [facility] Interpreting Provider: Guille Arnold MD
[2016-09-14] MEDS ORDERED: Naloxone 0.4 MG/ML INJ IVP PRN (03:49)
[2016-09-14] MEDS ORDERED: Pantoprazole 40 MG VIAL IVP SCH (03:52)
[2016-09-14] MEDS ORDERED: 0.9 % Sodium Chloride 1,000 ML IVC SCH (04:00)
--- NOTE | 2016-09-14 09:08 | General Surgery Consult Note ---
Date of Encounter: 09/14/16 Time of Encounter: 08:48 History of Present Illness Reason for consult: abdominal pain Requesting physician: Veronica Perez History of present illness: 71 yo noted for further evaluation after presenting to the [facility] ED with abrupt onset acute abdominal pain. Patient described the symptoms as similar to the acute abdominal pain that prompted her admission 04/2016. Patient is s/p julita-y gastric bypass 2000. The CT abd/pelvis completed last evening on presentation to the ED, personally reviewed with [facility], was notable for: prior cholecystectomy, gaseous distention of the remnant stomach (similar findings on CT 05/05); dilated duodenal C-loop and small bowel to the level of the jejuno- jejunal anastomosis; fecalization of the small bowel proximal to the anastomosis but the portion of the stomach used for the gastric bypass as well as the small bowel extending from the gastroejunostomy is non distended. The distal small bowel was unremarkable. Scattered colonic gas and stool is noted. The findings are suggestive of a possibel bowel obstruction v autonomic denervation of the involved loops small bowel due to the prior julita-y surgery. No definitive small bowel obstruction is identified. The patient indicates she has been completely asymptomatic since her admission. Past medical history: Hypertension, hypothyroidism Surgical history: Julita-en-Y gastric bypass, 2000;cholecystectomy 2001; left total knee March 2016. allergies: No known drug allergies Physical examination: Age-appropriatewoman in no acute distress. febrile, 98.3; pulse 71, respirations 15, blood pressure 123/72. skin: warm, no obvious jaundice Lungs: clear to auscultation. No abdominal pain with deep inspiration Cardiac: regular rate, no appreciable murmurs Abdomen: soft, non tender. Active bowel sounds. Patient has passed flatus. No reported BM since yesterday AM Extremities: no obvious, clubbing, cyanosis or edema Laboratories: White count 10.5; hemoglobin 13.8, hematocrit 43.7; differential unremarkable electrolytes, BUN, creatinine - notable for elevated BUN Impression: 71 YOF with acute onset abdominal pain, now asymptomatic. No definitive evidence bowel obstruction. Rcommendations: allow full liquids, if no recurrent symptoms and medically stable, may be discharged home to follow up with her primary care provider. Past Med Surg Social Fam HX - Past Medical History Medical history: hypertension, thyroid disease, other Psychiatric history: no psych history - Past Surgical History Surgical History: appendectomy, cholecystectomy, knee replacement - Social History Smoking Status: Never smoker Smokeless Tobacco Status: No Alcohol use: none Drug use: none - Family History Mother Living Status: Hx Family Cardiac Disorders: Yes Hx Family Respiratory Disorders: No Hx Family Cancer: No Hx Family GI Disorders: No Hx Family Endocrine Disorder: No Hx Family Neuromuscular Disorders: No Hx Family Neurologic Disorders: No Hx Family HEENT Disorders: No Hx Family Autoimmune Disorders: No Hx Family Medical Disorders: Yes (DVT in legs) Medications and Allergies Levothyroxine [Synthroid] 100 mcg PO DAILY 05/10/16 [History] Metoprolol [Lopressor] 50 mg PO BID 05/10/16 [History] amLODIPine [Norvasc] 5 mg PO BID 05/10/16 [History] Acetaminophen [Tylenol] 650 mg PO Q6HR PRN #0 tablet 05/12/16 [Rx] predniSONE [PredniSONE] 10 mg PO TAPER 09/13/16 [History] Allergies No Known Allergies Allergy (Verified 11/25/15 00:01) Review of Systems All systems PM: A 10-system review of systems was performed and is negative for pertinent findings except as documented above in the HPI. General Surgery Exam Initial Vital Signs Temp Pulse Resp BP Pulse Ox 97.6 F 68 18 117/78 97 09/13/16 19:33 09/13/16 19:33 09/13/16 19:33 09/13/16 19:33 09/13/16 19:33 Exam Initial Vital Signs Temp Pulse Resp BP Pulse Ox 97.6 F 68 18 117/78 97 09/13/16 19:33 09/13/16 19:33 09/13/16 19:33 09/13/16 19:33 09/13/16 19:33 Results - Labs 09/13/16 20:30 09/13/16 20:30 Abnormal lab results RBC 5.16 M/mcL (3.82-4.97) H 09/13/16 20:30 MCH 26.7 pg (28.0-33.3) L 09/13/16 20:30 RDW 14.6 % (11.5-14.5) H 09/13/16 20:30 APTT 25.1 Seconds (26.0-36.0) L 09/13/16 20:38 BUN 26 mg/dL (7-20) H 09/13/16 20:30 BUN/Creatinine Ratio 29 (6-26) H 09/13/16 20:30 Glucose 137 mg/dL (70-99) H 09/13/16 20:30 POC Glucose 90 (58-89) H 09/14/16 07:19 Globulin 3.7 g/dL (2.4-3.5) H 09/13/16 20:30 Lipase 83 Units/L (8-78) H 09/13/16 20:30 Urine Clarity Cloudy (Clear) A 09/13/16 21:27 Ur Specific [place] 1.029 (1.010-1.025) H 09/13/16 21:27 Urine Nitrite Positive (Negative) A 09/13/16 21:27 Ur Leukocyte Esterase Moderate (Negative) H 09/13/16 21:27 Urine Microscopic WBC 3-5 per hpf (0-3) H 09/13/16 21:27 Ur Squamous Epith Cells Many per lpf (None-Few) H 09/13/16 21:27 Urine Bacteria Many per hpf (None-Few) H 09/13/16 21:27 Ur Culture Indicated? YES (NO) A 09/13/16 21:27 All other labs normal. Consult Discharge Plan - Plan Referrals: Mingo Dunham DO [Primary Care Provider] -
[2016-09-14 14:38] VITALS: BP 149/80
--- NOTE | 2016-09-14 15:07 | Discharge Summary ---
Date of Encounter: 09/14/16 Time of Encounter: 09:00 - Discharge Diagnosis (1) Small bowel obstruction Priority: Primary Status: Ruled-out (2) UTI (urinary tract infection) Priority: Primary Status: Acute Qualifiers: Urinary tract infection type: site unspecified Hematuria presence: without hematuria Qualified Code(s): N39.0 - Urinary tract infection, site not specified (3) Hypertension Priority: Secondary Status: Chronic Qualifiers: Hypertension type: essential hypertension Qualified Code(s): I10 - Essential (primary) hypertension (4) Hypothyroidism Priority: Secondary Status: Chronic Qualifiers: Hypothyroidism type: unspecified Qualified Code(s): E03.9 - Hypothyroidism , unspecified - Discharge Medications Prescriptions: Cephalexin [Keflex] 500 mg PO BID #6 capsule Home Medications: Levothyroxine [Synthroid] 100 mcg PO DAILY 05/10/16 [History] Metoprolol [Lopressor] 50 mg PO BID 05/10/16 [History] amLODIPine [Norvasc] 5 mg PO BID 05/10/16 [History] Acetaminophen [Tylenol] 650 mg PO Q6HR PRN #0 tablet 05/12/16 [Rx] predniSONE [PredniSONE] 10 mg PO TAPER 09/13/16 [History] Cephalexin [Keflex] 500 mg PO BID #6 capsule 09/14/16 [Rx] Allergies/Adverse Reactions: Allergies No Known Allergies Allergy (Verified 11/25/15 00:01) Date of admission: 09/14/16 03:49 Primary care physician: Mingo Dunham DO Discharging clinician: Katrin Guadarrama Anticipated date of discharge: 09/14/16 - Patient Status Disposition: Home, Self-Care Condition: Good Functional capacity at discharge: independent ambulation Overall status at discharge: patient is progressing back to baseline - Discharge Instructions Instructions: Urinary Tract Infection in Women (DC), Hypothyroidism (DC), Chronic Hypertension (DC) Follow Up With: Mingo Dunham DO [Primary Care Provider] - 09/20/16 12:00 pm - Diet and Activity Activity: resume usual activities as tolerated Diet: advance to your usual diet, low salt diet Hospital course: Ms. Hankins is a 71 year old female with history of gastric bypass and jejunojejunal anastomosis, who presented with abdominal pain, nausea and vomiting. CT abdomen/pelvis done in the emergency room was suggestive of possible small bowel obstruction at the level of the anastomosis. Patient was initially kept nothing by mouth along with IV hydration and when necessary antiemetics and pain control. Patient significantly improved by this morning. Surgery was consulted and this is thought to be less likely bowel obstruction and cleared patient for discharge. Patient tolerated clear liquids and then soft diet although she reported she did not have much appetite. She remained hemodynamically stable and is being discharged with outpatient follow-up. She is also noted to have asymptomatic bacteriuria with pending urine culture and is being discharged on a short course of oral Keflex. - Time Spent with Patient Total time spent providing and/or coordinating discharge services: Greater than 30 minutes (45 min) - Constitutional Vitals: Temp Pulse Resp BP Pulse Ox 98.5 F 70 16 149/80 95 09/14/16 14:35 09/14/16 14:35 09/14/16 14:35 09/14/16 14:35 09/14/16 14:35 General appearance: Present: A&O X 3, answers questions appropriately - Cardiovascular Cardiovascular exam: Present: RRR, +S1, +S2. Absent: diastolic murmur, gallop, rubs, systolic murmur - GI/Abdominal GI/Abdominal exam: Present: normal bowel sounds, soft, no peritoneal signs. Absent: distended, tenderness
[2016-09-14] MEDS ORDERED: Lactobacillus 1 EACH CAP.SPRINK PO SCH (21:00)
[2016-09-15] MEDS ORDERED: predniSONE 10 MG TABLET PO SCH (09:00)
== END 2016-09-14 16:00 | disposition home or self-care (01) | DRG 690 ==
LOC: EMEROO 19:17 → 3ANU 19:17
PROVIDERS: ADMIT Internal Medicine; ATTEND Internal Medicine

== ENCOUNTER 2019-10-11 01:35 | Inpatient (IN) ==
[2019-10-11] MEDS ORDERED: Naloxone 0.4 MG/ML INJ IVP PRN (02:48)
[2019-10-11] MEDS ORDERED: Ondansetron 4 MG/2 ML VIAL IVP PRN ×2 (02:48→08:55)
[2019-10-11] MEDS: D5% in 0.45% NACL 1,000 ML IVC SCH ×2 (03:05→16:18)
[2019-10-11 03:55] LABS: Basophils % 0.3 %; Eosinophils % 0.1 %; Immature Granulocytes % 0.1 % (0-4); Red Cell Distribution Width 12.7 % (11.5-14.5)
[2019-10-11 03:56] LABS: Prothrombin Time 11.1 Seconds (9.4-12.1)
[2019-10-11 03:57] LABS: Hematocrit 44.5 % (35.3-44.9); Hemoglobin 13.9 g/dL (11.5-15.4); Immature Platelets 7.6 % (1.1-6.1); Lymphocytes # 0.4 K/mcL (0.6-4.6); Lymphocytes % 4.8 %; Mean Corpuscular HGB Conc 31.2 g/dL (31.6-35.5); Mean Corpuscular Hemoglobin 28.9 pg (28.0-33.3); Mean Corpuscular Volume 92.5 fL (83.0-100.0); Mean Platelet Volume 11.4 fL (9.4-12.4); Monocytes # 0.2 K/mcL (0.0-1.3); Monocytes % 2.3 %; Neutrophils # 7.3 K/mcL (1.6-8.9); Platelet Count 114 K/mcL (140-400); Red Blood Count 4.81 M/mcL (3.82-4.97); Segmented Neutrophils % 92.4 %; White Blood Count 7.9 K/mcL (4.3-11.1)
[2019-10-11 04:10] LABS: BUN/Creatinine Ratio 27 (6-26); Blood Urea Nitrogen 19 mg/dL (8-23); Calcium 9.3 mg/dL (8.6-10.3); Carbon Dioxide 27 mEq/L (23-29); Chloride 100 mEq/L (98-107); Chol/HDL Ratio 2.9 (0-4.9); Glucose 168 mg/dL (70-105); Magnesium 1.8 mg/dL (1.6-2.6); Osmolality,Calculated 286 (280-300); Sodium 135 mEq/L (136-145); eGFR For African Americans > 60 (> 60); eGFR For Non-African Americans > 60 (> 60)
[2019-10-11] MEDS: Levothyroxine Sodium 100 MCG VIAL IVP SCH (05:23)
[2019-10-11] MEDS: *HR* Heparin 5,000 UNIT/ML VIAL SQ SCH (17:37)
[2019-10-12 01:43] LABS: Hemoglobin 12.4 g/dL (11.5-15.4)
[2019-10-12 01:45] LABS: Immature Platelets 4.8 % (1.1-6.1); Mean Corpuscular HGB Conc 31.8 g/dL (31.6-35.5); Mean Corpuscular Hemoglobin 29.8 pg (28.0-33.3); Mean Corpuscular Volume 93.8 fL (83.0-100.0); Mean Platelet Volume 11.8 fL (9.4-12.4); Red Blood Count 4.16 M/mcL (3.82-4.97); Red Cell Distribution Width 12.9 % (11.5-14.5); White Blood Count 8.1 K/mcL (4.3-11.1)
[2019-10-12 02:08] LABS: BUN/Creatinine Ratio 29 (6-26); Blood Urea Nitrogen 16 mg/dL (8-23); Calcium 8.6 mg/dL (8.6-10.3); Carbon Dioxide 26 mEq/L (23-29); Chloride 102 mEq/L (98-107); Glucose 133 mg/dL (70-105); Magnesium 1.9 mg/dL (1.6-2.6); Osmolality,Calculated 285 (280-300); Potassium 3.1 mEq/L (3.5-5.1); Sodium 136 mEq/L (136-145); eGFR For African Americans > 60 (> 60); eGFR For Non-African Americans > 60 (> 60)
[2019-10-12] MEDS: *HR* Heparin 5,000 UNIT/ML VIAL SQ SCH (05:40)
[2019-10-12] MEDS: Levothyroxine Sodium 100 MCG VIAL IVP SCH (05:40)
[2019-10-12] MEDS ORDERED: Potassium Chloride Elixir 20 MEQ/15 ML UDC PO ONE (07:45)
[2019-10-12] MEDS ORDERED: amLODIPine 5 MG TABLET PO SCH (09:00)
[2019-10-12 10:42] VITALS: BP 142/95
== END 2019-10-12 13:32 | disposition home or self-care (01) | DRG 392 ==
LOC: 3ANU → SUATTDRO 01:35
PROVIDERS: ADMIT Internal Medicine; ATTEND Internal Medicine